=== PATIENT | male | born 1995 | race Asian ===

== ENCOUNTER 2016-10-31 21:03 | Emergency (ER) | payer OTHER ==
[~2016-10-31] VITALS: Ht 175.3 cm; Wt 62.1 kg
[2016-10-31 21:05] VITALS: BP 110/70
[2016-10-31] MEDS ORDERED: LIDOCAINE 1%, 20ML ONE (21:23)
[2016-10-31] MEDS ORDERED: LIDOCAINE 1%, 20ML SQ ONE (21:30)
[2016-10-31] MEDS ORDERED: DIPH,PERTUSS(ACELL),TET VAC/PF 0.5 ML IM-VACC ONE (21:30)
== END 2016-10-31 22:51 | disposition home or self-care (01) ==
LOC: ED 22:45
DX: S01.311A Laceration without foreign body of right ear, initial encounter (principal); X58.XXXA Exposure to other specified factors, initial encounter; Y93.89 Activity, other specified; Y99.8 Other external cause status; Y92.89 Other specified places as the place of occurrence of the external cause
CPT/HCPCS: 13152

== ENCOUNTER 2016-11-12 10:40 | Emergency (ER) | payer OTHER ==
[~2016-11-12] VITALS: Ht 175.3 cm; Wt 59.0 kg
[2016-11-12 10:49] VITALS: BP 104/64
== END 2016-11-12 11:22 | disposition home or self-care (01) ==
LOC: ED 11:00
DX: S01.33 Puncture wound without foreign body of ear (principal); X58.XXXA Exposure to other specified factors, initial encounter; Y93.89 Activity, other specified; Y92.89 Other specified places as the place of occurrence of the external cause; Y99.8 Other external cause status
CPT/HCPCS: 99281